=== PATIENT | male | born 1995 | race Caucasian/White ===

== ENCOUNTER 2017-12-11 04:18 | Emergency (ER) | payer OTHER ==
[~2017-12-11] VITALS: Ht 182.9 cm; Wt 95.2 kg
[~2017-12-11 04:18] MED LIST: KEFLEX500 MG PO
== END 2017-12-11 05:04 | disposition home or self-care (01) ==
LOC: ED 04:18
DX: G89.18 Other acute postprocedural pain (principal); Z90.49 Acquired absence of other specified parts of digestive tract
CPT/HCPCS: 99282

== ENCOUNTER 2017-12-17 18:57 | Emergency (ER) | payer OTHER ==
[~2017-12-17] VITALS: Ht 182.9 cm; Wt 95.2 kg
== END 2017-12-17 20:05 | disposition home or self-care (01) ==
LOC: ED 18:57
DX: J95.830 Postprocedural hemorrhage of a respiratory system organ or structure following a respiratory system procedure (principal)
CPT/HCPCS: 99283

== ENCOUNTER 2017-12-17 21:17 | Emergency (ER) | payer OTHER ==
[~2017-12-17] VITALS: Ht 182.9 cm; Wt 95.2 kg
== END 2017-12-17 22:47 | disposition home or self-care (01) ==
LOC: ED 21:17
DX: J95.830 Postprocedural hemorrhage of a respiratory system organ or structure following a respiratory system procedure (principal); Z90.89 Acquired absence of other organs
CPT/HCPCS: 96360; 99283; J7030

== ENCOUNTER 2018-11-05 21:33 | Emergency (ER) | payer OTHER ==
[~2018-11-05] VITALS: Ht 182.9 cm; Wt 95.2 kg
[2018-11-06] MEDS ORDERED: NORCO 5-325 TA1 EACH PO (23:47)
[2018-11-06] MEDS ORDERED: FLOMAX0.4 MG PO (23:47)
== END 2018-11-06 | disposition home or self-care (01) ==
LOC: ED 21:33
DX: E86.0 Dehydration (principal); R31.9 Hematuria, unspecified; Z90.89 Acquired absence of other organs
CPT/HCPCS: 80053; 81001; 85025; 99284; J7030

== ENCOUNTER 2018-11-06 20:53 | Emergency (ER) | payer OTHER ==
[~2018-11-06] VITALS: Ht 182.9 cm; Wt 95.2 kg
--- OUTSIDE RECORDS SUMMARY | 2018-11-06 20:56 | XMS ---
PreManage Notification: MARCELINA ANDRADE Security Show Host Events No recent Security Events currently on file CRITERIA MET - [facility] - 2 Visits in 30 Days CARE PROVIDERS There are no care providers on record at this time. Mickey has no Care Guidelines for this patient. Oliver[place] VISIT COUNT (12 MO.) 5 [facility] TOTAL 5 NOTE: Visits indicate total known visits. ED/C VISIT TRACKING (12 MO.) 11/06/2018 20:54 [facility] [place] TYPE: Emergency COMPLAINT: - FLANK PAIN 11/05/2018 21:33 [facility] [place] TYPE: Emergency COMPLAINT: - DIZZY 12/17/2017 21:18 [facility] [place] TYPE: Emergency COMPLAINT: - BLEEDING FROM TONSILLECTOMY DIAGNOSES: - Postprocedural hemorrhage of a respiratory system organ or structure following a respiratory system procedure - Acquired absence of other organs 12/17/2017 18:58 [facility] [place] TYPE: Emergency COMPLAINT: - SORE THROAT,POST OP DIAGNOSES: - Postprocedural hemorrhage of a respiratory system organ or structure following a respiratory system procedure 12/11/2017 04:19 [facility] [place] TYPE: Emergency COMPLAINT: - SORE THROAT, POST OP DIAGNOSES: - Other acute postprocedural pain - Acute pharyngitis, unspecified - Acquired absence of other specified parts of digestive tract INPATIENT VISIT TRACKING (12 MO.) No inpatient visits to display in this time frame [id number]
[2018-11-06] MEDS ORDERED: NORCO 5-325 TA1 EACH PO (23:47)
[2018-11-06] MEDS ORDERED: FLOMAX0.4 MG PO (23:47)
== END 2018-11-06 23:58 | disposition home or self-care (01) ==
LOC: ED 20:53
DX: N13.2 Hydronephrosis with renal and ureteral calculous obstruction (principal)
CPT/HCPCS: 74176; 80053; 81001; 85025; 96374; 96375; 96376; 99284-25; J1170; J1885; J2405

== ENCOUNTER 2018-11-11 00:19 | Emergency (ER) | payer OTHER ==
[~2018-11-11] VITALS: Ht 182.9 cm; Wt 95.2 kg
[~2018-11-11 00:19] MED LIST changes: +FLOMAX0.4 MG PO; +NORCO 5-325 TA1 EACH PO
--- OUTSIDE RECORDS SUMMARY | 2018-11-11 00:20 | XMS ---
PreManage Notification: MARCELINA ANDRADE Security Fruit And Vegetable Inspector Events No recent Security Events currently on file CRITERIA MET - [facility] - [facility] - 2 Visits in 30 Days CARE PROVIDERS There are no care providers on record at this time. Mickey has no Care Guidelines for this patient. Oliverio VISIT COUNT (12 MO.) [address] [facility] [place] H. TOTAL 6 NOTE: Visits indicate total known visits. ED/C VISIT TRACKING (12 MO.) 11/11/2018 00:[address] [facility] [place] TYPE: Emergency COMPLAINT: - FLANK PAIN 11/06/2018 20:54 [facility] [place] TYPE: Emergency COMPLAINT: - FLANK PAIN DIAGNOSES: - Left lower quadrant pain - Hydronephrosis with renal and ureteral calculous obstruction 11/05/2018 21:33 [facility] [place] TYPE: Emergency COMPLAINT: - DIZZY DIAGNOSES: - Dizziness and giddiness - Acquired absence of other organs - Hematuria, unspecified - Dehydration 12/17/2017 21:18 [facility] [place] TYPE: Emergency [...] following a respiratory system procedure 12/11/2017 04:[address] [facility] [address] [facility] [place] TYPE: Emergency COMPLAINT: - SORE THROAT, POST OP DIAGNOSES: - Other acute postprocedural pain - Acute pharyngitis, unspecified - Acquired absence of other specified parts of digestive tract INPATIENT VISIT TRACKING (12 MO.) No inpatient visits to display in this time frame [id number]
[2018-11-11] MEDS ORDERED: NORCO 5-325 TA1 EACH PO (01:28)
== END 2018-11-11 01:50 | disposition home or self-care (01) ==
LOC: ED 00:19
DX: N20.0 Calculus of kidney (principal); Z79.899 Other long term (current) drug therapy
CPT/HCPCS: 81001; 99284

== ENCOUNTER 2019-09-06 00:21 | Emergency (ER) | payer OTHER ==
[~2019-09-06] VITALS: Ht 182.9 cm; Wt 99.8 kg
--- OUTSIDE RECORDS SUMMARY | 2019-09-06 00:24 | XMS ---
PreManage Notification: MARCELINA ANDRADE Security Slip Box Changer Events No recent Security Events currently on file CRITERIA MET - [facility] CARE PROVIDERS There are no care providers on record at this time. Mickey has no Care Guidelines for this patient. Oliverio VISIT COUNT (12 MO.) 4 [facility] TOTAL 4 NOTE: Visits indicate total known visits. ED/C VISIT TRACKING (12 MO.) 09/06/2019 00:21 [facility] [place] TYPE: Emergency COMPLAINT: - FLANK PAIN 11/11/2018 00:19 [facility] [place] TYPE: Emergency COMPLAINT: - FLANK PAIN DIAGNOSES: - Other manager intermediate (current) drug therapy - Calculus of kidney - Unspecified abdominal pain 11/06/2018 20:54 [facility] [place] TYPE: Emergency COMPLAINT: - FLANK PAIN DIAGNOSES: - Left lower quadrant pain - Hydronephrosis with renal and ureteral calculous obstruction 11/05/2018 21:33 [facility] [place] TYPE: Emergency COMPLAINT: - DIZZY DIAGNOSES: - Dizziness and giddiness - Acquired absence of other organs - Hematuria, unspecified - Dehydration INPATIENT VISIT TRACKING (12 MO.) No inpatient visits to display in this time frame [email or web address]
[2019-09-06] MEDS ORDERED: NORCO 5-325 TA1 EACH PO (01:46)
== END 2019-09-06 02:07 | disposition home or self-care (01) ==
LOC: ED 00:21
DX: N23 Unspecified renal colic (principal)
CPT/HCPCS: 74176; 80053; 81001; 85025; 96374; 96375; 99284-25; J1170; J1885; J2405

== ENCOUNTER 2019-09-28 03:07 | Emergency (ER) | payer OTHER ==
[~2019-09-28] VITALS: Ht 182.9 cm; Wt 95.2 kg
--- OUTSIDE RECORDS SUMMARY | 2019-09-28 03:10 | XMS ---
PreManage Notification: MARCELINA ANDRADE Security Rolloff Driver Events No recent Security Events currently on file CRITERIA MET - [facility] - 2 Visits in 30 Days CARE PROVIDERS KYLIE CLEMENTE Physician Compressor Assembler 09/08/2019-Current PHONE: [phone] Mickey has no Care Guidelines for this patient. Oliverio VISIT COUNT (12 MO.) 5 [facility] TOTAL 5 NOTE: Visits indicate total known visits. ED/UCC VISIT TRACKING (12 MO.) 09/28/2019 03:07 [facility] [place] TYPE: Emergency COMPLAINT: - PANIC ATTACK 09/06/2019 00:21 [facility] [place] TYPE: Emergency COMPLAINT: - FLANK PAIN DIAGNOSES: - Unspecified renal colic - Unspecified abdominal pain 11/11/2018 00:19 [facility] [place] TYPE: Emergency COMPLAINT: - FLANK PAIN DIAGNOSES: - Other care home (current) drug therapy - Calculus of kidney [...] visits to display in this time frame [id number]
[2019-09-28] MEDS ORDERED: SERTRALINE HCL25 MG PO (03:20)
== END 2019-09-28 03:50 | disposition home or self-care (01) ==
LOC: ED 03:07
DX: F41.9 Anxiety disorder, unspecified (principal); Z79.899 Other long term (current) drug therapy
CPT/HCPCS: 99283

== ENCOUNTER 2021-12-17 06:25 | Emergency (ER) | payer OTHER ==
[~2021-12-17] VITALS: Ht 182.9 cm; Wt 91.6 kg
[~2021-12-17 06:25] MED LIST changes: +SERTRALINE HCL25 MG PO
--- OUTSIDE RECORDS SUMMARY | 2021-12-17 06:28 | XMS ---
PreManage Notification: MARCELINA ANDRADE Security Link Trainer Mechanic Events No recent Security Events currently on file CRITERIA MET - [facility] Current [facility] PHONE: [phone] EULALIA PERALES [facility] Current PHONE: Unknown KYLIE CLEMENTE Physician 09/08/2019-Current PHONE: [phone] Mickey has no Care Guidelines for this patient. Care History Medical/Surgical 09/29/2019 [facility] - W CALLED PATIENT UNABLE TO LEAVE A MESSAGE-MAILBOX IS FULL. - PATIENT WOULD BENEFIT FROM [facility] IF ACCEPTING. - PATIENT WAS LAST SEEN BY PCP KYLIE CLEMENTE ON 06/14/2019Nelda Duron VISIT COUNT (12 MO.) 1 [facility] TOTAL 1 NOTE: Visits indicate total known visits. ED/UCC VISIT TRACKING (12 MO.) 12/17/2021 06:25 [facility] [place] TYPE: Emergency COMPLAINT: - LACERATION INPATIENT VISIT TRACKING (12 MO.) No inpatient visits to display in this time frame [email or web address]
== END 2021-12-17 08:16 | disposition home or self-care (01) ==
LOC: ED 06:25
DX: S01.01XA Laceration without foreign body of scalp, initial encounter (principal); W16.822A Jumping or diving into other water striking bottom causing other injury, initial encounter; Y93.39 Activity, other involving climbing, rappelling and jumping off; Z23 Encounter for immunization
CPT/HCPCS: 12001; 90471; 90715; 99282-25